=== PATIENT | male | born 1965 | race Caucasian/White ===

== ENCOUNTER → 2025-05-09 17:27 | Outpatient (REF) | payer BC, SELFPAY | LOC: RAD 17:27 | PROVIDERS: ATTENDING PHYSICIAN Nurse Practitioner Family; FAMILY PHYSICIAN Family Medicine | DX: J32.0 Chronic maxillary sinusitis (principal) | CPT/HCPCS: 70486 ==

== ENCOUNTER → 2025-09-25 16:15 | Outpatient (REF) | payer BC, SELFPAY | LOC: RAD 16:15 | PROVIDERS: ATTENDING PHYSICIAN Physician Assistant; FAMILY PHYSICIAN Family Medicine | DX: M25.561 Pain in right knee (principal); M79.651 Pain in right thigh; M25.50 Pain in unspecified joint; R53.83 Other fatigue; R93.7 Abnormal findings on diagnostic imaging of other parts of musculoskeletal system | CPT/HCPCS: 73120; 73552; 73560; 73565 ==

== ENCOUNTER → 2025-10-03 06:36 | Outpatient (REF) | payer BC, SELFPAY | LOC: PAVMRI 06:36 | PROVIDERS: ATTENDING PHYSICIAN Orthopaedic Surgery; FAMILY PHYSICIAN Family Medicine | DX: M54.16 Radiculopathy, lumbar region (principal) | CPT/HCPCS: 72148 ==